=== PATIENT | female | born 1935 | race Caucasian/White ===

== ENCOUNTER 2021-08-09 00:34 | Outpatient (CLI) | payer MEDICARE, BC, SELFPAY ==
--- NOTE | 2021-08-09 10:34 | DI.US_ITS ---
APPROVED REPORT EXAM: Comprehensive 2D, Doppler, and color-flow Echocardiogram Patient Location: Out-Patient Beveler: Graciela Kessler RDCS (AE) Indications: Hypoxia, HTN, Sleep apnea, concern for pulmonary htn Other Information Study Quality: Adequate Conclusion Mild concentric left ventricular hypertrophy. Estimated ejection fraction is 60 to 65%. There are n o segmental wall motion abnormalities Normal right ventricular size and systolic function Both atria are dilated Aortic valve is trileaflet and sclerotic. There is mild aortic stenosis. Mean gradient is 11 mmHg. There is mild aortic regurgitation Mildly thickened mitral leaflets with mild regurgitation Structurally normal tricuspid valve with moderate regurgitation. Estimated right ventricular systoli c pressure is 44 mmHg, mild to moderate pulmonary hypertension Normal pulmonic valve with mild regurgitation Wall motion Left Ventricle The left ventricle is normal size. The left ventricular systolic function is normal. The left ventric ular ejection fraction is within the normal range. Mild concentric left ventricular hypertrophy. Ther e is normal LV segmental wall motion. There is no ventricular septal defect visualized. LVEF is 60-65 %. Right Ventricle Right ventricle is grossly normal in size. The right ventricular systolic function is normal. The RVS P is 43.7mmHg. Atria Left atrium is severely dilated. Right atrium is severely dilated. The interatrial septum is intact w ith no evidence for an atrial septal defect. Atrial septal aneurysm is present. Aortic Valve Aortic valve is calcified. Aortic valve is trileaflet. Mild aortic stenosis. Peak aortic valve gradie nt is 23.5mmHg. Highest mean aortic valve gradient is 12.8mmHg. Calculated RANULFO by the continuity equa tion is 1.50cm2. Mild aortic regurgitation. Mitral Valve Mitral valve leaflets are mildly thickened. No evidence of mitral valve stenosis. Mild mitral regurgi tation. Tricuspid Valve The tricuspid valve is normal in structure. There is no tricuspid valve stenosis. Moderate tricuspid regurgitation. Pulmonic Valve The pulmonary valve is normal in structure. There is no pulmonic valvular stenosis. Mild pulmonic reg urgitation. Great Vessels The aortic root is normal in size. The ascending aorta is normal in size. Aortic arch is not well vis ualized. IVC is normal in size and collapses >50% with inspiration. Pericardium There is no pericardial effusion. 2D Dimensions IVSD d PLAX 1.22 cm F: 0.6-1.0 LV Vol A2C d MOD 103.6 mL LVPW d PLAX 1.21 cm F: 0.6 - 1.0 LV Vol A4C d MOD 98.4 mL LVID d PLAX 4.70 cm F: 3.8 - 5.2 LA vol/ BSA A2C s A-L 70.6 mL/m2 LVDs 3.25 cm F: 2.2 - 3.5 LA vol/ BSA A4C s A-L 49.3 mL/m2 Ao Root d 2.93 cm F: 2.7 - 3.3 LA Vol/ BSA Biplane s A-L 60.2 mL/m2 RA Area A4C 21.06 cm2 LA Area A4C s MOD 23.37 cm2 RA Vol/ BSA A4C s A-L 51.3 mL/m2 LA Area A2C s MOD 27.43 cm2 Ao Asc Diam d 3.07 cm F: 2.3 - 3.1 LV EF A4C MOD 64.7 % LV EF Teichholz 58.4 % LV EF A2C MOD 59.0 % LVEF (Lopez's) 62.80 % F: 54 - 74 LV EF Biplane MOD 62.8 % LV Volume 84.86 mL F: 46 - 106 SV 64.74 mL LV Volume Index 55.10 mL/m2 F: 29 - 61 SV Index 41.85 mL/m2 LV Vol Biplane MOD 103.1 mL FS 30.75 % M-Mode TAPSE 1.42 cm (M/F) >1.7 LV Diastology MV E' medial 0.048 (>0.07 m/s) E/A Ratio 1.0 LV E/e MED 17.85 (<14) MV E Vmax 0.86 (0.4-1.3 m/s) MV E' lateral 0.085 (>0.1 m/s) MV A Vmax 0.85 (0.4-1.3 m/s) LV E/e LAT 10.05 (<14) MV E/A Ratio 0.96 MV E/E' medial 17.89 MV E/E' lateral 10.08 Aortic Valve LVOT Area 3.04 cm2 AoV Area Vmax 1.50 cm2 LVOT Vmax 1.20 m/s AoV Area/ BSA (Vmax) 0.97 cm2/m2 LVOT Mean Mumtaz. 0.76 m/s RANULFO Mean Mumtaz. 1.38 cm2 LVOT Peak Grad 5.7 mmHg RANULFO Mean Mumtaz. Index 0.89 cm2/m2 LVOT Mean Grad 2.8 mmHg AR DT 2055 msec LVOT VTI 0.288 m AR PHT 596 msec LVOT Diam s 1.95 cm AoV Vmax 2.42 m/s Velocity Ratio 0.49 AoV Mean Mumtaz. 1.67 m/s AoV Peak Grad 23.5 mmHg LVOT SV 87.55 mL AoV Mean Grad 12.8 mmHg AoV VTI 0.542 m AoV Area VTI 1.61 cm2 AoV Area/ BSA (VTI) 1.04 cm/m2 Mitral Valve MV DT 230 (160-240 msec) MV PHT 67 msec MV Area PHT 3.30 cm2 MV VTI 0.482 m MV Area VTI 1.82 (4.0-6.0 cm2) Pulmonary Valve PV Vmax 1.14 (0.5-1.5 m/s) RVOT Peak Gr. 1.60 mmHg PV Peak Grad 5.2 mmHg RVOT Mean Gr. 0.95 mmHg PV Mean Grad 2.4 mmHg RVOT VTI 0.150 m PV VTI 0.239 m RVOT Vmax 0.63 m/s Tricuspid Valve TR Peak Grad 40.6 mmHg TR Vmax 3.19 m/s RA Pressure 3.00 mmHg RVSP (TR) 43.7 mmHg
== END 2021-08-09 00:54 ==
PROVIDERS: PCP Nurse Practitioner Family; Visit Provider Student in an Organized Health Care Education/Training Program
DX: G47.33 Obstructive sleep apnea (adult) (pediatric) (principal); R09.02 Hypoxemia; I10 Essential (primary) hypertension; I08.3 Combined rheumatic disorders of mitral, aortic and tricuspid valves; I37.1 Nonrheumatic pulmonary valve insufficiency
CPT/HCPCS: 93306

== ENCOUNTER → 2023-12-24 15:32 | Outpatient (BNVA) | payer MEDICARE, SELFPAY | PROVIDERS: PCP Physician Assistant Medical; Referring Provider Physician Assistant Medical; Visit Provider Physician Assistant Surgical | DX: J44.9 Chronic obstructive pulmonary disease, unspecified (principal); G47.33 Obstructive sleep apnea (adult) (pediatric); J96.11 Chronic respiratory failure with hypoxia; I27.20 Pulmonary hypertension, unspecified | CPT/HCPCS: 99214 ==

== ENCOUNTER → 2024-06-23 14:22 | Outpatient (BNVA) | payer MEDICARE, SELFPAY | PROVIDERS: PCP Physician Assistant Medical; Referring Provider Physician Assistant Medical; Visit Provider Physician Assistant Surgical | DX: J44.9 Chronic obstructive pulmonary disease, unspecified (principal); G47.33 Obstructive sleep apnea (adult) (pediatric); J96.11 Chronic respiratory failure with hypoxia; I27.20 Pulmonary hypertension, unspecified | CPT/HCPCS: 99214 ==